=== PATIENT | female | born 1955 ===

== ENCOUNTER 2024-09-30 12:47 | Outpatient (RCR) | payer MEDICARE, OTHER, SELFPAY ==
[2024-09-30 13:04] VITALS: BP 155/78
[2024-09-30] MEDS: RECLAST 100 IV (13:26)
[2024-09-30 14:30] VITALS: BP 139/75
== END 2024-10-01 11:32 | disposition home or self-care (01) ==
LOC: OID 12:47
PROVIDERS: ATTENDING PHYSICIAN Internal Medicine; FAMILY PHYSICIAN Family Medicine
DX: M81.0 Age-related osteoporosis without current pathological fracture (principal)
CPT/HCPCS: 96365; J3489